=== PATIENT | female | born 2000 | race Caucasian/White ===

== ENCOUNTER 2024-11-15 13:36 | Emergency (ER) | payer OTHER, SELFPAY ==
--- NOTE | ~2024-11-15 | XR_ITS ---
EXAMINATION: XR CHEST CLINICAL INFORMATION: chest pain COMPARISON: September 17, 2017. TECHNIQUE: Frontal view of the chest was obtained. FINDINGS: No consolidation, pleural effusion or pneumothorax. No hyperinflation. Cardiomediastinal silhouette size is normal. Osseous structures are intact. XR/XR chest 1V IMPRESSION: No acute airspace disease. Negative chest x-ray. Electronically signed by: Adalid Aguirre MD 11/15/2024 03:46 PM EDT
--- NOTE | 2024-11-15 13:37 | ECG_ITS ---
Test Reason : CHEST PAIN Blood Pressure : */* mmHG Vent. Rate : 90 BPM Atrial Rate : 90 BPM P-R Int : 134 ms QRS Dur : 84 ms QT Int : 356 ms P-R-T Axes : 41 11 10 degrees QTcB Int : 435 ms Normal sinus rhythm Normal ECG When compared with ECG of 17-Sep-2017 21:10, Inverted T waves have replaced nonspecific T wave abnormality in Inferior leads Referred By: Andi Granda Electronically Signed By: Hunter Frazier
[2024-11-15 13:48] VITALS: BP 131/90; PULSE 98; RESP 16; TEMP 36.9; O2SAT 98; BMI 26.0
--- NOTE | 2024-11-15 13:50 | ED_ITS ---
HPI - General Adult General Chief complaint: Chest Pain Stated complaint: Chest pain, right neck pain, weak Time Seen by Provider: 11/15/24 15:04 Related Data Previous Rx's ?Medication ?Instructions ?Recorded qgtyoqkeql-ibxhrtnltklia-dwohuont 1 cap PO Q8H PRN headache #7 caps 11/15/24 50 mg-300 mg-40 mg capsule (Fioricet) Allergies Allergy/AdvReac Type Severity Reaction Status Date / Time No Known Allergies Allergy Verified 11/15/24 13:52 [No Known Allergies*] [facility] Social History Social History Alcohol intake: current Alcohol type: beer, wine and hard liquor Smoked in Last 30 Days: No Use of substances other than those prescribed or required for medical reasons: Yes Substance Use Type: Marijuana Advance Directives: No Advance Directives Information Provided: Yes Patient : No Physical Exam ED Vital Signs: Vital Signs - 24 hr 11/15/24 13:48 11/15/24 14:46 11/15/24 16:41 Temperature 98.4 F 97.4 F 97.5 F Pulse Rate 98 88 85 Respiratory Rate 16 16 16 Blood Pressure 131/90 H 115/86 108/76 Pulse Oximetry 98 98 98 Oxygen Delivery Method Room Air Room Air Room Air BMI result Body Mass Index 26.0 Course Course Course Narrative: RME, this is a rapid medical exam performed by Thang Granda please refer to primary provider for complete H&P- 24-year-old female presents for evaluation of chest pain that started today. The pain is intermittent. She had started less than pain in the right side of her neck. Plan for labs, EKG Reevaluation(s) Time: 16:05 Reevaluation #2: Assumed care from previous provider pending blood work and final disposition. Patient resting comfortably at this time. CP free Time: 18:06 Additional Reevaluation(s): Patient has developed a slight headache. Will medicate with Fioricet and send her home with some for the same. Her workup today has been reassuring. Initial cardiac enzyme, D-dimer, chest x-ray, CBC and CMP all very reassuring. D-dimer is low, low suspicion for pulmonary embolism. Pain likely related to anxiety. Using shared decision-making, patient will be discharged home to follow up with her primary care doctor. Discussed importance of follow-up with primary care as well as strict return precautions. Medications Administered Discontinued Medications Generic Name Dose Route Start Last Admin Trade Name Stephen PRN Reason Stop Dose Admin Lorazepam 1 mg 11/15/24 15:13 11/15/24 15:17 Lorazepam 1 Mg Tablet PO 11/15/24 15:14 1 mg ONCE ONE Administration Medical Decision Making Lab Data 11/15/24 16:09 11/15/24 16:09 Labs: Lab Results 11/15/24 Range/Units 16:09 WBC 9.9 (4.8-10.8) X10*3/uL RBC 4.75 (4.20-5.50) X10*6/uL Hgb 13.8 (12.0-16.0) g/dl Hct 39.7 (37.0-47.0) % MCV 83.6 (80.0-98.0) fL MCH 29.1 (27.0-33.0) pg MCHC 34.8 (31.0-35.0) g/dl RDW 12.5 (11.0-16.0) % Plt Count 377 (160-400) X10*3/uL MPV 8.5 L (9.4-12.3) fL Immature Gran % (Auto) 0.3 (0.0-0.4) % Neut % (Auto) 67.3 (45-73) % Lymph % (Auto) 22.6 (20-40) % [place] % (Auto) 7.6 (2-11) % Eos % (Auto) 1.9 (0-4) % Baso % (Auto) 0.3 (0-2) % Lymph # (Auto) 2.2 (1.2-4.9) X10*3/uL [place] # (Auto) 0.8 (0.1-1.2) X10*3/uL Eos # (Auto) 0.2 (0.0-0.4) X10*3/uL Baso # (Auto) 0.0 (0.0-0.2) X10*3/uL Abs Immat Gran (auto) 0.03 (0.00-0.03) X10*3/uL Absolute Neuts (auto) 6.6 (2.0-8.3) x10*3/uL Absolute Nucleated RBC 0.000 (0.0-0.012) X10*3/uL Nucleated RBC % (auto) 0.0 (0.0-0.2) /100WBC D-Dimer High Sensitivty < 150 NG/ML Sodium 141 (135-145) mmol/L Potassium 4.2 (3.3-5.1) mmol/L Chloride 108 (96-108) mmol/L Carbon Dioxide 24 (22-29) mmol/L Anion Gap 13 (12-20) BUN 11 (9-16) mg/dL Creatinine 0.91 (0.5-1.4) mg/dL Estim Creat Clear Calc 80.7 Estimated GFR > 60 Random Glucose 88 (60-115) mg/dL Calcium 9.9 (8.4-10.2) mg/dL Total Bilirubin 0.4 (0.0-1.0) mg/dL AST 18 (5-31) U/L ALT 12 (0-31) U/L Alkaline Phosphatase 51 (39-117) U/L Troponin I High Sens < 2.7 (<3.5-17.0) ng/L Total Protein 7.6 (6.5-8.0) g/dL Albumin 4.8 (3.5-5.0) g/dL Lipase 52 (8-78) U/L Beta HCG, Quant < 2 mIU/mL Discharge Plan Discharge Clinical Impression: Chest pain Qualifiers: Chest pain type: unspecified Qualified Code(s): R07.9 - Chest pain, unspecified Patient Disposition: Home, Self-Care Instructions: Noncardiac Chest Pain (ED) Additional Instructions: Return to the emergency department with any new or worsening symptoms including: Worsening chest pain difficulty breathing, fevers greater than 100?, passing out, any new symptom that concerns you. Call 911 with any medical emergency. Prescriptions: New hpefhhmtvi-sxtqvfvthquix-uvsb [Fioricet] 50-300-40 mg capsule 1 cap PO Q8H PRN (Reason: headache) Qty: 7 0RF Print Language: Iranian
[2024-11-15 14:46] VITALS: BP 115/86; PULSE 88; RESP 16; TEMP 36.3; O2SAT 98
--- NOTE | 2024-11-15 14:56 | PC.NURSE ---
Patient presents to ED c/o chest pain non radiating rated 4/10. Chest pain has since resolved since arriving to ED, patient claims it comes and goes . 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 Patient states she had the stomach bug two days ago and had N/V/D but V/D has since resolved, patient still c/o of nausea. VSS and up to date. Patient refusing labs at this time, patient requesting something for anxiety or numbing cream before getting labs drawn. 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 Plan of care on going
--- NOTE | 2024-11-15 15:15 | ED_ITS ---
HPI - Chest Pain General Chief Complaint: Chest Pain Stated Complaint: Chest pain, right neck pain, weak Time Seen by Provider: 11/15/24 15:04 Source: patient Mode of arrival: ambulatory Limitations: no limitations History of Present Illness HPI narrative: This is a 24 years old female patient presented to the emergency department complaining of chest pain since this morning about 10:00 pain is described as pressure improving at this time. No radiation of the pain, no exertional symptoms. Patient has a history of anxiety but no risk factors for early coronary artery disease no diabetes no hypertension no hypercholesterolemia nonsmoker. Onset (ago): hour(s) (5) Timing of current episode: constant Prior episodes: No Onset: during rest Pain location: substernal Pain radiation: none Severity: mild Quality: aching Exacerbating factors: nothing Risk Factors Coronary artery disease risk factors: none Related Data Allergies Allergy/AdvReac Type Severity Reaction Status Date / Time No Known Allergies Allergy Verified 11/15/24 13:52 [No Known Allergies*] Review of Systems 2 Constitutional: Constitutional: Reports no additional constitutional complaints ENT: Reports system reviewed and no additional complaints, except as documented Cardiovascular: Cardiovascular: Reports no additional cardiovascular complaints Respiratory: Respiratory: Reports no additional respiratory complaints Neurologic: Reports Abnormal speech present [facility] Past Medical History [facility] Narrative: Anxiety Social History Social History Alcohol intake: current Alcohol type: beer, wine and hard liquor Smoked in Last 30 Days: No Use of substances other than those prescribed or required for medical reasons: Yes Substance Use Type: Marijuana Advance Directives: No Advance Directives Information Provided: Yes Patient : No Physical Exam 2 Vital Signs: Vital Signs: Last Vital Signs Temp 97.4 F 11/15/24 14:46 Pulse 88 11/15/24 14:46 Resp 16 11/15/24 14:46 BP 115/86 11/15/24 14:46 Pulse Ox 98 11/15/24 14:46 O2 Del Method Room Air 11/15/24 14:46 BMI result Body Mass Index 26.0 Not acute distress anxious looking patient Const: General: cooperative Nutritional Appearance: average body habitus Orientation/consciousness: patient oriented x3 Limitations: no limitations HEENT: Head: Yes normal to inspection General nose exam: Normal external nose present Face and sinus: Yes normal facial exam Neck: Neck: Yes normal visual inspection Resp: Effort & Inspection: normal respiratory effort Cardio: Jugular venous distension: no JVD Palpation: normal PMI Rate: r egular rate GI: Inspection: Yes normal to inspection Palpation (GI): Soft to palpation : General: Yes no CVA tenderness Back/Spine/Pelvis: Back: no CVA tenderness Neuro: General: patient oriented x3 Cranial nerves: Yes CN's II-XII intact bilaterally Cognition (Neuro): normal cognition Speech: Abnormal speech present Motor exam (neuro): 5/5 motor strength present throughout Extrem: General: Yes normal to inspection and Yes full ROM Course Reevaluation(s) Reevaluation #1: lab are pending at this time ,if negative tropi and d-dimer anticipate admission pt was signed out to incoming provider at this time Time: 16:16 Medications Administered Discontinued Medications Generic Name Dose Route Start Last Admin Trade Name Freq PRN Reason Stop Dose Admin Lorazepam 1 mg 11/15/24 15:13 11/15/24 15:17 Lorazepam 1 Mg Tablet PO 11/15/24 15:14 1 mg ONCE ONE Administration Medical Decision Making Medical Decision Making [facility] Narrative: Patient presented with chest pain no risk factors for early coronary artery disease as we will do EKG labs Differential Diagnosis Differential Diagnoses: The differential diagnosis associated with the presentation includes Acute coronary syndrome/musculoskeletal chest pain/anxiety/pericarditis Admission/Observation Consideration of admission/observation: Escalation of care including admission/observation considered Lab Data 11/15/24 16:09 11/15/24 16:09 Independent Interpretation I performed an independent interpretation of an: EKG Interpretation: EKG shows normal sinus rhythm rate [address]-T changes normal electrocardiogram Discharge Plan Discharge Clinical Impression: Chest pain Qualifiers: Chest pain type: unspecified Qualified Code(s): R07.9 - Chest pain, unspecified Print Language: Gambian
[2024-11-15] MEDS: LORazepam 1 MG TABLET PO (15:17)
[2024-11-15 16:12] LABS: MANUAL DIFF FLAG NO
[2024-11-15 16:14] LABS: Red Blood Count 4.75 X10*6/uL (4.20-5.50); White Blood Count 9.9 X10*3/uL (4.8-10.8)
[2024-11-15 16:15] LABS: Basophils Percent Auto 0.3 % (0-2); Eosinophils Absolute Auto 0.2 X10*3/uL (0.0-0.4); Eosinophils Percent Auto 1.9 % (0-4); Hematocrit 39.7 % (37.0-47.0); Hemoglobin 13.8 g/dl (12.0-16.0); Imm Gran Abs Auto 0.03 X10*3/uL (0.00-0.03); Imm Gran Pct Auto 0.3 % (0.0-0.4); Lymphocytes Absolute Auto 2.2 X10*3/uL (1.2-4.9); Lymphocytes Percent Auto 22.6 % (20-40); Mean Corpuscular HGB Conc 34.8 g/dl (31.0-35.0); Mean Corpuscular Hemoglobin 29.1 pg (27.0-33.0); Mean Corpuscular Volume 83.6 fL (80.0-98.0); Mean Platelet Volume 8.5 fL (9.4-12.3); Monocytes Absolute Auto 0.8 X10*3/uL (0.1-1.2); Monocytes Percent Auto 7.6 % (2-11); Neutrophils Absolute Auto 6.6 x10*3/uL (2.0-8.3); Neutrophils Percent Auto 67.3 % (45-73); Platelet Count 377 X10*3/uL (160-400); Red Cell Distribution Width 12.5 % (11.0-16.0)
[2024-11-15 16:32] LABS: D Dimer High Sensitivity < 150 NG/ML
[2024-11-15 16:36] LABS: Alanine Aminotransferase 12 U/L (0-31); Albumin Level 4.8 g/dL (3.5-5.0); Alkaline Phosphatase 51 U/L (39-117); Anion Gap 13 (12-20); Aspartate Amino Transferase 18 U/L (5-31); Bilirubin Total 0.4 mg/dL (0.0-1.0); Blood Urea Nitrogen 11 mg/dL (9-16); Calcium 9.9 mg/dL (8.4-10.2); Carbon Dioxide 24 mmol/L (22-29); Chloride 108 mmol/L (96-108); Creatinine Clr Calc Pharmacy 80.7; Estimated Glomerular Filt Rate > 60; Glucose Random 88 mg/dL (60-115); Lipase 52 U/L (8-78); Potassium 4.2 mmol/L (3.3-5.1); Sodium 141 mmol/L (135-145); Total Protein 7.6 g/dL (6.5-8.0)
[2024-11-15 16:37] LABS: HCG Quantitative < 2 mIU/mL; Troponin-I High Sensitivity < 2.7 ng/L (<3.5-17.0)
[2024-11-15 16:41] VITALS: BP 108/76; PULSE 85; RESP 16; TEMP 36.4; O2SAT 98
[2024-11-15] MEDS: Butalb/Acetamin/Caff 50/325/40 TABLET 1 TAB PO (18:49)
[2024-11-15 19:01] VITALS: BP 108/77; PULSE 104; RESP 20; TEMP 36.4; O2SAT 98
[2024-11-15 19:09] VITALS: BP 108/77; PULSE 104; RESP 20; TEMP 36.4; O2SAT 98
== END 2024-11-15 19:10 | disposition home or self-care (01) ==
PROVIDERS: Emergency Medicine; Physician Assistant; Emergency Provider Emergency Medicine
DX: R07.9 Chest pain, unspecified (principal)
CPT/HCPCS: 36415; 71045; 80053; 83690; 84484; 84702; 85025; 85379; 93005; 99283; 99285

== ENCOUNTER → 2024-11-15 13:37 | Outpatient (BNV) | payer OTHER, SELFPAY | PROVIDERS: Emergency Provider Emergency Medicine; Visit Provider Internal Medicine Cardiovascular Disease | DX: R07.9 Chest pain, unspecified (principal) | CPT/HCPCS: 93010 ==

== ENCOUNTER → 2024-11-15 15:14 | Outpatient (BNV) | payer OTHER, SELFPAY | PROVIDERS: Emergency Provider Emergency Medicine; Visit Provider Radiology Diagnostic Radiology | DX: R07.9 Chest pain, unspecified (principal) | CPT/HCPCS: 71045 ==

== ENCOUNTER 2024-12-06 10:47 | Outpatient (REF) | payer OTHER, SELFPAY ==
--- OUTSIDE RECORDS SUMMARY | 2024-12-06 11:52 | XMS_ITS | Encounter Summary ---
Author Organization [facility] Address [address] [place] [address] Care Team Providers Care Manager Report Name Role Phone Tiana Mcmahon MD Primary Care Provider [phone] Encounter Details Date Type Department Care Team (Late Contact Info) Description 04/06/2024 Lab Requisition [facility] - Main Lab [address] [place] [id number] Germaine Fuller MD [address] [facility] [address] [place] [address] Neoplasm of uncertain behavior of skin Social History Tobacco Use Types Packs/Day Years Used Date Smoking Tobacco: Never Smokeless Tobacco: Never Alcohol Use Standard Drinks/Week Comments Yes 0 (1 standard drink = 0.6 oz pur e alcohol) Comments Unknown Sex and Gender Information Value Date Recorded Sex Assigned at Not on file Legal Sex Female 10:12 AM EST Gender Identity Not on file Sexual Orientation Not on file documented as of this encounter Plan of Treatment Upcoming Encounters Date Type Department Care Team (Late st Contact Info) Description 12/22/2024 11:00 AM EDT Office Visit Adult Medicine [address] [phone] Tiana Mcmahon MD [address] [place] [id number] documented as of this encounter Procedures Procedure Name Priority Date/Time Associated Diagnosis Comments TISSUE EXAM Routine 04/06/2024 Neoplasm of uncertain behavior of skin documented in this encounter Results * Tissue Exam (04/06/2024) Final Diagnosis Skin, upper back-excision: -MELANOCYTIC NEVUS, COMPOUND TYPE, WITH CONGENITAL FEATURES 04/07/2024 11:51 AM [facility] Gross Description A. Back, Upper, left: Labeled atypical skin lesion left upper back . Received in formalin is a 4.7 x 1 cm unoriented taveras-white skin ellipse excised to depth of 1 cm. The epidermis displays a 1.1 x 1 x 0.4 cm central taveras-brown nodule, located within 0.1 cm of the margin. The specimen is sectioned in a cruciate manner. Manager Field Investigations sections, to include the entirety of the nodule, are submitted as follows: 1, unoriented cruciate tips, two pieces 2 and 3, sequential transverse cross-sections, two pieces each 04/07/2024 11:51 AM [facility] Disclaimer Unless otherwise specified, all tissue is 10% NB formalin fixed and paraffin embedded. 04/07/2024 11:51 AM [facility] Tissue Upper back structure / Unknown 04/06/2024 04/06/2024 12:22 PM EST us Germaine Fuller MD LAB PATHOLOGY ORDERABLE S Final Result [facility] [address] [place] [address], documented in this encounter Visit Diagnoses Diagnosis Neoplasm of uncertain behavior of skin documented in this encounter Care Teams Manager Report Relationship Specialty Start Date End Date Tiana Mcmahon MD [address] [place] [id number] PCP - General 06/23/22 documented as of this encounter
== END 2024-12-06 10:48 | disposition home or self-care (01) ==
LOC: HO.LAB 10:47
PROVIDERS: PCP Physician Assistant; Visit Provider Physician Assistant
DX: R53.83 Other fatigue (principal)
CPT/HCPCS: 36415; 82306; 84443; 84481

== ENCOUNTER 2025-01-22 15:34 | Emergency (ER) | payer OTHER, SELFPAY ==
--- NOTE | ~2025-01-22 | XR_ITS ---
CLINICAL HISTORY: pain 1 view abdomen Comparison: None Findings: Normal bowel gas pattern. Normal stool quantity. No abnormal calcifications. No obvious pneumoperitoneum or pneumatosis. No acute fractures Impression: Normal bowel gas pattern This document has been electronically signed by: Eduard Champion MD on 01/22/2025 16:48:59
[2025-01-22 15:37] VITALS: BP 145/101; PULSE 112; RESP 18; TEMP 36.2; O2SAT 98; BMI 26.1
--- NOTE | 2025-01-22 15:46 | ED_ITS ---
HPI - General Adult General Chief complaint: General Medical Stated complaint: extreme lower back pain Time Seen by Provider: 01/22/25 18:44 History of Present Illness ED Provider: Milo MARRERO narrative: The patient is a 24-year-old female with a history of hidradenitis suppurativa who has developed low back pain over the last several days. She says it started to bother her about 5 days ago for no apparent reason. It has gotten worse over the last 24 hours. There has been no injury. No heavy lifting or straining. She indicates that she feels the pain across her lower back at the level of the upper buttocks or at the sacral level. She says that given the location of the pain she was worried that she might be developing a pilonidal cyst abscess (a friend of hers once had problems with a pilonidal cyst). She has had no fever, sweats, chills. She has had no urinary discomfort or urinary complaints of any kind. She says she has been chronically constipated and she attributes this to her psychiatric medications. She says she has not had a bowel movement in over a week. She has no numbness or tingling, weakness or burning in her lower extremities. Related Data Previous Rx's ?Medication ?Instructions ?Recorded vpztuqpeff-tihgvhmnpziqr-ibjcxcce 1 cap PO Q8H PRN hea dache #7 caps 11/15/24 50 mg-300 mg-40 mg capsule (Fioricet) acetaminophen 500 mg capsule 1,000 mg (2 x 500 mg) PO Q8H PRN 01/22/25 fever or pain #14 caps ibuprofen 400 mg tablet 400 mg PO Q6H PRN pain #14 t abs 01/22/25 polyethylene glycol 3350 17 17 g PO DAILY #238 grams 0 01/22/25 gram/dose oral powder (ClearLax) Allergies Allergy/AdvReac Type Severity Reaction Status Date / Time No Known Allergies (No Known Allergy Verified 01/22/25 15:41 Allergies*) Review of Systems 2 Review of Systems: Yes all other systems are reviewed and are negative [facility] Social History Social History Alcohol intake: current Alcohol type: beer, wine and hard liquor Substance Use Type: Marijuana Advance Directives: No Advance Directives Information Provided: No Do you have a plan to hurt others: No Plan Physical Exam ED Vital Signs: Vital Signs - 24 hr 01/22/25 15:37 01/22/25 18:34 01/22/25 19:26 Temperature 97.1 F 98.2 F 98.2 F Pulse Rate 112 H 114 H 108 H Respiratory Rate 18 16 16 Blood Pressure 145/101 H 130/89 130/89 Pulse Oximetry 98 98 98 Oxygen Delivery Method Room Air Room Air Room Air BMI result Body Mass Index 26.1 Const Other: The patient is a 24-year-old woman who is awake and alert and does not appear unwell. She looks as if she is ordinarily in good health and does not appear obviously acutely ill to moment. She seemed to be moving around easily with only minimal discomfort in changing positions. HENMT Other: The face is symmetrical. ?Mucous membranes moist. Eyes Other: Pupils are round equal, conjunctivae are clear, extraocular movements intact Neck Neck: Yes normal visual inspection, Yes full ROM and Yes no lymphadenopathy Resp Effort & Inspection: normal respiratory effort Auscultation: clear to auscultation bilaterally Cardio Other: No murmur Rate: regular rate Rhythm: regular rhythm Heart sounds: S1 normal heart sound present and S2 normal heart sound present GI Other: Abdomen is flat, soft, nontender. Back/Spine/Pelvis Other: No significant focal tenderness with palpation of the vertebral column in the lower back. There is some generalized tenderness across the upper glutei bilaterally. Skin Other: Skin is dry and unremarkable. Neuro Other: The patient is awake and alert with a normal mental status. Cranial nerves are intact. She seems to move her extremities normally and appropriately. She has 2+ reflexes at the knees and ankles. Toes go down bilaterally. She seems entirely neurologically intact. Extrem Other: There is no calf swelling or tenderness. No asymmetry. No peripheral edema. Course Course Course Narrative: RME, this is a rapid medical exam performed by Thang Granda please refer to primary provider for complete H&P- 24-year-old female presents for evaluation of lower back pain with associated constipation for a week and a half. Plan for labs, urinalysis, and a KUB x-ray. Medications Administered Discontinued Medications Generic Name Dose Route Start Last Admin Trade Name Freq PRN Reason Stop Dose Admin Acetaminophen 975 mg 01/22/25 19:06 01/22/25 19:19 Acetaminophen 325 Mg Tablet PO 01/22/25 19:07 975 mg ONCE ONE Administration Ketorolac Tromethamine 30 mg 01/22/25 19:06 01/22/25 19:19 Ketorolac Tromethamine 30 Mg/Ml Vial IM 01/22/25 19:07 30 mg ONCE ONE Administration Magnesium Citrate 300 ml 01/22/25 19:06 01/22/25 19:20 Magnesium Citrate 300 Ml Solution PO 01/22/25 19:07 300 ml ONCE ONE Administration Medical Decision Making Medical Decision Making [facility] Narrative: The patient is a 24-year-old who presents with several days of bilateral lower back pain that was not associated with any injury. There was no associated fever or any other red flags. She has a normal neurological exam. She reports chronic problems with constipation and she believes she has been constipated recently but I do not believe this is because of any ominous back pain syndrome. She has no urinary symptoms. The patient will be treated with ibuprofen and acetaminophen as needed for her back pain. She was reassured with regard to her back pain that this seems to be straight forward musculoskeletal back pain. The patient will be given a bottle of magnesium citrate that she may take at home for her constipation. She will also be prescribed daily polyethylene glycol. She is given a work note for the next 2 days because of the back pain. She should follow up with her PCP. Return if worse. The patient was tachycardic on her initial vital signs. I checked her heart rate and oxygen saturation with a pulse oximeter. Her oxygen saturation was 99% and her heart rate was 94-96. Lab Data 01/22/25 16:09 01/22/25 16:09 Labs: Lab Results 01/22/25 Range/Units 16:09 WBC 11.3 H (4.8-10.8) X10*3/uL RBC 4.43 (4.20-5.50) X10*6/uL Hgb 12.9 (12.0-16.0) g/dl Hct 37.3 (37.0-47.0) % MCV 84.2 (80.0-98.0) fL MCH 29.1 (27.0-33.0) pg MCHC 34.6 (31.0-35.0) g/dl RDW 13.2 (11.0-16.0) % Plt Count 392 (160-400) X10*3/uL MPV 8.9 L (9.4-12.3) fL Immature Gran % (Auto) 0.4 (0.0-0.4) % Neut % (Auto) 63.4 (45-73) % Lymph % (Auto) 27.2 (20-40) % [place] % (Auto) 5.8 (2-11) % Eos % (Auto) 2.8 (0-4) % Baso % (Auto) 0.4 (0-2) % Lymph # (Auto) 3.1 (1.2-4.9) X10*3/uL [place] # (Auto) 0.7 (0.1-1.2) X10*3/uL Eos # (Auto) 0.3 (0.0-0.4) X10*3/uL Baso # (Auto) 0.1 (0.0-0.2) X10*3/uL Abs Immat Gran (auto) 0.04 H (0.00-0.03) X10*3/uL Absolute Neuts (auto) 7.2 (2.0-8.3) x10*3/uL Absolute Nucleated RBC 0.000 (0.0-0.012) X10*3/uL Nucleated RBC % (auto) 0.0 (0.0-0.2) /100WBC Sodium 143 (135-145) mmol/L Potassium 4.1 (3.3-5.1) mmol/L Chloride 109 H (96-108) mmol/L Carbon Dioxide 25 (22-29) mmol/L Anion Gap 13 (12-20) BUN 11 (9-16) mg/dL Creatinine 1.14 (0.5-1.4) mg/dL Estim Creat Clear Calc 64.5 Estimated GFR 59 Random Glucose 96 (60-115) mg/dL Calcium 10.0 (8.4-10.2) mg/dL Total Bilirubin 0.2 (0.0-1.0) mg/dL AST 20 (5-31) U/L ALT 17 (0-31) U/L Alkaline Phosphatase 54 (39-117) U/L Total Protein 7.8 (6.5-8.0) g/dL Albumin 4.8 (3.5-5.0) g/dL Lipase 37 (8-78) U/L Beta HCG, Quant < 2 mIU/mL Urine Color Yellow Urine Appearance Cloudy Urine pH 7.0 (5.0-9.0) Ur Specific [place] 1.025 (1.005-1.025) Urine Protein Negative (Neg-Trace) mg/dL Urine Glucose (UA) Negative (Negative) mg/dL Urine Ketones Negative (Negative) mg/dL Urine Blood Negative (Negative) Urine Nitrite Negative (Negative) Ur Leukocyte Esterase Small (1+) H (Negative) Urine RBC 0-2 (0-2) /HPF Urine WBC 6-10 H (0-5) /HPF Ur Squamous Epith Cells 0-2 (0-2) /HPF Urine Bacteria Trace (None Seen) Hyaline Casts 0-2 (0-2) /LPF Discharge Plan Discharge Clinical Impression: Acute low back pain, Constipation Patient Disposition: Home, Self-Care Instructions: Constipation (ED), Acute Low Back Pain (ED) Additional Instructions: I think that your low back pain is musculoskeletal low back pain rather than something more ominous. There was no sign of a pilonidal cyst abscess. Your blood testing is very reassuring. Please take the bottle of magnesium citrate and drink it when you get home over the next 24 hours. My hope is this will start to address your constipation. Additionally I have sent a prescription for polyethylene glycol (also known as MiraLax) which I think he should also take for constipation. Take a dose daily for several weeks. Use ibuprofen and acetaminophen as needed for your pain. Please contact your regular doctor's office in the morning for a follow up appointment to discuss these symptoms further. Also keep your psychiatric appointment on Thursday. Return to the emergency room if you feel significantly worse. Prescriptions: New ibuprofen 400 mg tablet 400 mg PO Q6H PRN (Reason: pain) Qty: 14 0RF acetaminophen 500 mg capsule 1,000 mg PO Q8H PRN (Reason: fever or pain) Qty: 14 0RF polyethylene glycol 3350 [ClearLax] 17 gram/dose powder 17 g PO DAILY Qty: 238 0RF No Action bvlyzfzhwq-vilxccocaqngb-kxhx [Fioricet] 50-300-40 mg capsule 1 cap PO Q8H PRN (Reason: headache) Qty: 7 0RF Referrals: Tiana Mcmahon MD [Primary Care Provider, Internal Medicine] Stand Alone Forms: Work/School Release Interventions: ED Discharge Assessment Last Done: 01/22/25 19:26 Discharge Date/Time: 01/22/25 19:27 Print Language: Divehi
[2025-01-22 16:25] LABS: MANUAL DIFF FLAG NO
[2025-01-22 16:27] LABS: Hematocrit 37.3 % (37.0-47.0); Hemoglobin 12.9 g/dl (12.0-16.0); Imm Gran Abs Auto 0.04 X10*3/uL (0.00-0.03); Imm Gran Pct Auto 0.4 % (0.0-0.4); Lymphocytes Absolute Auto 3.1 X10*3/uL (1.2-4.9); Mean Corpuscular HGB Conc 34.6 g/dl (31.0-35.0); Mean Corpuscular Hemoglobin 29.1 pg (27.0-33.0); Mean Corpuscular Volume 84.2 fL (80.0-98.0); NRBC Abs Auto 0.000 X10*3/uL (0.0-0.012); NRBC Pct Auto 0.0 /100WBC (0.0-0.2); Platelet Count 392 X10*3/uL (160-400); Red Blood Count 4.43 X10*6/uL (4.20-5.50); White Blood Count 11.3 X10*3/uL (4.8-10.8)
[2025-01-22 16:28] LABS: Appearance Urine Cloudy; Glucose Urine UA Negative (Negative); PH 7.0 (5.0-9.0); Specific Gravity - Urine 1.025 (1.005-1.025); UMIC TRIGGER UACC YES
[2025-01-22 16:33] LABS: UACC Culture Trigger YES
[2025-01-22 16:53] LABS: Alanine Aminotransferase 17 U/L (0-31); Albumin Level 4.8 g/dL (3.5-5.0); Alkaline Phosphatase 54 U/L (39-117); Anion Gap 13 (12-20); Aspartate Amino Transferase 20 U/L (5-31); Blood Urea Nitrogen 11 mg/dL (9-16); Calcium 10.0 mg/dL (8.4-10.2); Carbon Dioxide 25 mmol/L (22-29); Chloride 109 mmol/L (96-108); Creatinine Clr Calc Pharmacy 64.5; Estimated Glomerular Filt Rate 59; Lipase 37 U/L (8-78); Potassium 4.1 mmol/L (3.3-5.1); Sodium 143 mmol/L (135-145); Total Protein 7.8 g/dL (6.5-8.0)
[2025-01-22 18:34] VITALS: BP 130/89; PULSE 114; RESP 16; TEMP 36.8; O2SAT 98
[2025-01-22 19:26] VITALS: BP 130/89; PULSE 108; RESP 16; TEMP 36.8; O2SAT 98
== END 2025-01-22 19:27 | disposition home or self-care (01) ==
PROVIDERS: Physician Assistant; Emergency Provider Emergency Medicine; PCP Internal Medicine
DX: M54.50 Low back pain, unspecified (principal); K59.00 Constipation, unspecified; L73.2 Hidradenitis suppurativa
CPT/HCPCS: 36415; 74018; 80053; 81001; 83690; 84702; 85025; 87086; 96372; 99283; 99284; J1885

== ENCOUNTER → 2025-01-22 15:47 | Outpatient (BNV) | payer OTHER, SELFPAY | PROVIDERS: Visit Provider Radiology Diagnostic Radiology | DX: K59.00 Constipation, unspecified (principal) | CPT/HCPCS: 74018 ==